=== PATIENT | female | born 1995 | race Hispanic/Latino ===

== ENCOUNTER 2021-12-17 18:14 | Emergency (ER) | payer OTHER ==
[~2021-12-17] VITALS: Ht 154.9 cm; Wt 74.8 kg
[2021-12-17] MEDS ORDERED: TAMIFLU75 MG PO ×2 (19:07→19:17)
[2021-12-17 19:22] VITALS: BP 116/72
== END 2021-12-17 19:22 | disposition home or self-care (01) ==
LOC: FSED 18:43
DX: R05.9 Cough, unspecified (principal); J10.1 Influenza due to other identified influenza virus with other respiratory manifestations; J45.909 Unspecified asthma, uncomplicated; F17.210 Nicotine dependence, cigarettes, uncomplicated
CPT/HCPCS: 83518; 87400; 99282